=== PATIENT | female | born 1995 | race American Indian/Alaskan Native ===

== ENCOUNTER 2017-10-26 12:37 | Emergency (ER) | payer MEDICAID ==
[2017-10-26] MEDS ORDERED: TYLENOL PO ONE (13:45)
[2017-10-26] MEDS ORDERED: PROVENTIL IH ONE (13:45)
[2017-10-26] MEDS ORDERED: NACL 0.9% 500 ML 500 ML IV ONE (13:45)
--- NOTE | 2017-10-26 13:46 | Emergency Department Report ---
ED General Adult HPI - General Chief complaint: Back Pain/Injury Stated complaint: RIGHT FLANK PAIN Time Seen by Provider: 10/26/17 13:26 Source: patient, RN notes reviewed Mode of arrival: Ambulatory Limitations: No Limitations - History of Present Illness Initial comments: This is a 22-year-old female who is previously unknown to this provider, does not have any chronic medical conditions, and reports that she is not . Patient presents to the ER with complaint of right upper quadrant pain and cough intermittently for 2 weeks. The pain is achy, and increases with coughing. It decreases with rest. There is no chest pain, no shortness of breath, no mucus production, has no leg pain, no leg swelling, but does have an indwelling left upper extremity implanan device. Patient denies lower abdominal pain, irritative, obstructive urinary symptoms. -: Gradual Location: abdomen Radiation: back Quality: aching Consistency: intermittent Improves with: rest Worsens with: movement Associated Symptoms: cough. denies: confusion, chest pain, diaphoresis, fever/ chills, headaches, loss of appetite, malaise, nausea/vomiting, rash, seizure, shortness of breath, syncope, weakness - Related Data Home Medications Medication Instructions Recorded Confirmed Last Taken Ferrous Sulfate 1 tab PO BID 02/01/14 02/01/14 01/31/14 22:00 Previous Rx's Medication Instructions Recorded Last Taken Type Acetaminophen [Tylenol Arthritis] 650 mg PO Q6HR PRN #30 tablet.er 10/26/17 Unknown Rx Albuterol Sulfate [Proair 90 mcg IH Q4HR PRN #2 aer.pow.ba 10/26/17 Unknown Rx Respiclick] Azithromycin [Zithromax TAB] 250 mg PO QDAY #4 tablet 10/26/17 Unknown Rx Benzonatate [Tessalon Perles] 100 mg PO Q8HR PRN #30 capsule 10/26/17 Unknown Rx Ibuprofen [Motrin] 600 mg PO Q8H PRN #30 tablet 10/26/17 Unknown Rx Ondansetron [Zofran Odt] 4 mg PO Q8HR PRN #20 tab.rapdis 10/26/17 Unknown Rx Allergies Allergy/AdvReac Type Severity Reaction Status Date / Time No Known Allergies Allergy Verified 02/01/14 04:26 ED Review of Systems ROS: Stated complaint: RIGHT FLANK PAIN Other details as noted in HPI Comment: All other systems reviewed and negative ED Past Medical Hx - Past Medical History Hx Hypertension: No Hx Congestive Heart Failure: No Hx Diabetes: No Hx Deep Vein Thrombosis: No Hx Renal Disease: No Hx Sickle Cell Disease: No Hx Seizures: No Hx Asthma: No Hx COPD: No - Surgical History Past Surgical History?: No - Social History Smoking Status: Never Smoker Substance Use Type: Marijuana - Medications Home Medications: Home Medications Medication Instructions Recorded Confirmed Last Taken Type Ferrous Sulfate 1 tab PO BID 02/01/14 02/01/14 01/31/14 22:00 History Acetaminophen [Tylenol Arthritis] 650 mg PO Q6HR PRN #30 tablet.er 10/26/17 Unknown Rx Albuterol Sulfate [Proair 90 mcg IH Q4HR PRN #2 aer.pow.ba 10/26/17 Unknown Rx Respiclick] Azithromycin [Zithromax TAB] 250 mg PO QDAY #4 tablet 10/26/17 Unknown Rx Benzonatate [Tessalon Perles] 100 mg PO Q8HR PRN #30 capsule 10/26/17 Unknown Rx Ibuprofen [Motrin] 600 mg PO Q8H PRN #30 tablet 10/26/17 Unknown Rx Ondansetron [Zofran Odt] 4 mg PO Q8HR PRN #20 tab.rapdis 10/26/17 Unknown Rx ED Physical Exam - General Limitations: No Limitations General appearance: alert, in no apparent distress - Head Head exam: Present: atraumatic, normocephalic - Eye Eye exam: Present: normal appearance, EOMI. Absent: nystagmus - ENT ENT exam: Present: normal exam, normal orophraynx, mucous membranes moist, normal external ear exam - Neck Neck exam: Present: normal inspection, full ROM - Respiratory Respiratory exam: Present: normal lung sounds bilaterally. Absent: respiratory distress - Cardiovascular Cardiovascular Exam: Present: normal rhythm, tachycardia, normal heart sounds. Absent: systolic murmur, diastolic murmur, rubs, gallop - GI/Abdominal GI/Abdominal exam: Present: soft, tenderness, normal bowel sounds, other (there is right upper quadrant tenderness. Negative Francois sign.). Absent: distended , guarding, rebound, rigid, bruit, pulsatile mass - Extremities Exam Extremities exam: Present: normal inspection, full ROM, normal capillary refill. Absent: pedal edema, joint swelling, calf tenderness - Back Exam Back exam: Present: normal inspection, full ROM. Absent: tenderness, CVA tenderness (R), paraspinal tenderness, vertebral tenderness - Neurological Exam Neurological exam: Present: alert, oriented X3, CN II-XII intact, normal gait, other (Extraocular movements intact. Tongue midline. No facial droop. Facial sensation intact to light touch in the V1, V2, V3 distribution bilaterally. 5 and 5 strength in 4 extremities.. Sensation is intact to light touch in 4 extremities.). Absent: motor sensory deficit - Psychiatric Psychiatric exam: Present: normal affect, normal mood - Skin Skin exam: Present: warm, dry, intact, normal color. Absent: rash ED Course Vital Signs 10/26/17 10/26/17 10/26/17 12:51 14:52 15:10 Temperature 98.3 F Pulse Rate 119 H Pulse Rate [ 98 H Anterior Bilateral Throughout] Respiratory 16 18 Rate Respiratory 16 Rate [Anterior Bilateral Throughout] Blood Pressure 140/94 Blood Pressure [Left] O2 Sat by Pulse 100 Oximetry 10/26/17 10/26/17 10/26/17 15:12 15:33 17:50 Temperature Pulse Rate 125 H 103 H Pulse Rate [ 98 H Anterior Bilateral Throughout] Respiratory 20 18 Rate Respiratory 18 Rate [Anterior Bilateral Throughout] Blood Pressure 144/86 Blood Pressure 129/79 [Left] O2 Sat by Pulse 100 100 Oximetry - Reevaluation(s) Reevaluation #1: 10/26/17 17:05 Patient continues to walk around the department in no distress. She is tolerating liquid feeds, playing on a cell phone and looks much improved. Tachycardia appreciated, but based on all the data available, I believe the patient is medically suitable for discharge at this time, and she is reliable to follow up as an outpatient. Reevaluation #2: 10/26/17 21:32 Heart rate 103 bpm at the time of discharge ED Medical Decision Making - Lab Data Result diagrams: 10/26/17 13:49 10/26/17 13:49 Vital Signs 10/26/17 10/26/17 10/26/17 12:51 14:52 15:10 Temperature 98.3 F Pulse Rate 119 H Pulse Rate [ 98 H Anterior Bilateral Throughout] Respiratory 16 18 Rate Respiratory 16 Rate [Anterior Bilateral Throughout] Blood Pressure 140/94 O2 Sat by Pulse 100 Oximetry 10/26/17 10/26/17 15:12 15:33 Temperature Pulse Rate 125 H Pulse Rate [ 98 H Anterior Bilateral Throughout] Respiratory 20 Rate Respiratory 18 Rate [Anterior Bilateral Throughout] Blood Pressure 144/86 O2 Sat by Pulse 100 Oximetry Laboratory Last Values WBC 19.2 K/mm3 (4.5-11.0) H 10/26/17 13:49 RBC 5.62 M/mm3 (3.65-5.03) H 10/26/17 13:49 Hgb 11.8 gm/dl (10.1-14.3) 10/26/17 13:49 Hct 38.2 % (30.3-42.9) 10/26/17 13:49 MCV 68 fl (79-97) L 10/26/17 13:49 MCH 21 pg (28-32) L 10/26/17 13:49 MCHC 31 % (30-34) 10/26/17 13:49 RDW 16.0 % (13.2-15.2) H 10/26/17 13:49 Plt Count 313 K/mm3 (140-440) 10/26/17 13:49 PT 12.4 Sec. (12.2-14.9) 10/26/17 13:49 INR 0.88 (0.87-1.13) 10/26/17 13:49 D-Dimer 1448.49 ng/mlDDU (0-234) H 10/26/17 13:49 Sodium 138 mmol/L (137-145) 10/26/17 13:49 Potassium 4.6 mmol/L (3.6-5.0) 10/26/17 13:49 Chloride 98.7 mmol/L (98-107) 10/26/17 13:49 Carbon Dioxide 25 mmol/L (22-30) 10/26/17 13:49 Anion Gap 19 mmol/L 10/26/17 13:49 BUN 8 mg/dL (7-17) 10/26/17 13:49 Creatinine 0.6 mg/dL (0.7-1.2) L 10/26/17 13:49 Estimated GFR > 60 ml/min 10/26/17 13:49 BUN/Creatinine Ratio 13 % 10/26/17 13:49 Glucose 75 mg/dL (65-100) 10/26/17 13:49 Calcium 9.0 mg/dL (8.4-10.2) 10/26/17 13:49 Total Bilirubin 0.40 mg/dL (0.1-1.2) 10/26/17 13:49 AST 24 units/L (5-40) 10/26/17 13:49 ALT 14 units/L (7-56) 10/26/17 13:49 Alkaline Phosphatase 83 units/L (35-129) 10/26/17 13:49 Total Protein 8.0 g/dL (6.3-8.2) 10/26/17 13:49 Albumin 4.1 g/dL (3.9-5) 10/26/17 13:49 Albumin/Globulin Ratio 1.1 % 10/26/17 13:49 Lipase 19 units/L (13-60) 10/26/17 13:49 Urine Color Yellow (Yellow) 10/26/17 14:34 Urine Turbidity Clear (Clear) 10/26/17 14:34 Urine pH 5.0 (5.0-7.0) 10/26/17 14:34 Ur Specific [place] 1.021 (1.003-1.030) 10/26/17 14:34 Urine Protein 30 mg/dl mg/dL (Negative) 10/26/17 14:34 Urine Glucose (UA) Neg mg/dL (Negative) 10/26/17 14:34 Urine Ketones Neg mg/dL (Negative) 10/26/17 14:34 Urine Blood Sm (Negative) 10/26/17 14:34 Urine Nitrite Neg (Negative) 10/26/17 14:34 Ur Reducing Substances Not Reportable 10/26/17 14:34 Urine Bilirubin Neg (Negative) 10/26/17 14:34 Urine Ictotest Not Reportable 10/26/17 14:34 Urine Urobilinogen < 2.0 mg/dL (<2.0) 10/26/17 14:34 Ur Leukocyte Esterase Tr (Negative) 10/26/17 14:34 Urine WBC (Auto) 3.0 /HPF (0.0-6.0) 10/26/17 14:34 Urine RBC (Auto) 4.0 /HPF (0.0-6.0) 10/26/17 14:34 U Epithel Cells (Auto) 14.0 /HPF (0-13.0) H 10/26/17 14:34 Amorphous Crystals 1+ 10/26/17 14:34 Urine Mucus Few /HPF 10/26/17 14:34 Urine HCG, Qual Negative (Negative) 10/26/17 14:34 - Radiology Data Radiology results: report reviewed, image reviewed Right upper quadrant ultrasound: Negative for acute disease, not consistent with cholecystitis CT scan of the chest: Negative for pulmonary embolus, large right lower lobe pneumonia, no evidence of abscess - Medical Decision Making Differential diagnosis, including not limited to: Cholecystitis, pneumonia, pulmonary embolus, rhonchi S Assessment and plan: 22-year-old female with right upper quadrant pain, cough, tachycardia. Has indwelling control device, low risk by well's criteria, tachycardic, d- dimer sent and found to be elevated. Laboratory quadrant ultrasound negative for cholecystitis. Laboratory studies unremarkable with exception of leukocytosis. CT scan of the chest demonstrates uncomplicated right lower lobe pneumonia. I appreciates that the patient is tachycardic and has a leukocytosis, however she is afebrile, saturating well, not in any respiratory distress, playing on a telephone, tolerating liquid feeds, and is hemodynamically stable. She is immune competent as far she knows, and is therefore suitable for a trial of oral outpatient antibiotics. I appreciate that the patient does meet systemic inflammatory response syndrome criteria, but given the aforementioned, I believe the patient suitable for a trial of oral outpatient antibiotics. She will be given fluids, she is also somewhat tachycardic after being given albuterol, and will be discharged home with Tessalon Perles, albuterol, and azithromycin. Critical care attestation.: If time is entered above; I have spent that time in minutes in the direct care of this critically ill patient, excluding procedure time. ED Disposition Clinical Impression: Pneumonia Qualifiers: Pneumonia type: due to unspecified organism Laterality: right Lung location: lower lobe of lung Qualified Code(s): J18.1 - Lobar pneumonia, unspecified organism Disposition: - TO HOME OR SELFCARE Is pt being admited?: No Does the pt Need Aspirin: No Condition: Stable Instructions: Bacterial Pneumonia (ED) Additional Instructions: Take the medications as needed/directed. If taking ibuprofen for pain, take it with food. Follow up in 2-3 days for a repeat checkup/evaluation. Patient may follow-up either at an urgent care center, with a primary care doctor, or may return to this emergency room for a recheck. Please return to the ER right away with lethargy, irritability, projectile vomiting, change in mental status, confusion, inability to tolerate liquid feeds. Prescriptions: Acetaminophen [Tylenol Arthritis] 650 mg PO Q6HR PRN #30 tablet.er PRN Reason: Pain Albuterol Sulfate [Proair Respiclick] 90 mcg IH Q4HR PRN #2 aer.pow.ba PRN Reason: Wheezing Azithromycin [Zithromax TAB] 250 mg PO QDAY #4 tablet Benzonatate [Tessalon Perles] 100 mg PO Q8HR PRN #30 capsule PRN Reason: Cough Ibuprofen [Motrin] 600 mg PO Q8H PRN #30 tablet PRN Reason: Pain Ondansetron [Zofran Odt] 4 mg PO Q8HR PRN #20 tab.rapdis PRN Reason: Nausea Referrals: PRIMARY CAREMD [Primary Care Provider] - 3-5 Days DEMAR MARIN MD [Staff Physician] - 3-5 Days Forms: Work/School Release Form(ED)
[2017-10-26 14:20] LABS: Hematocrit 38.2 % (30.3-42.9); Hemoglobin 11.8 gm/dl (10.1-14.3); Mean Corpuscular HGB Conc 31 % (30-34); Red Blood Count 5.62 M/mm3 (3.65-5.03)
[2017-10-26 14:29] LABS: INR 0.88 (0.87-1.13)
[2017-10-26 14:30] LABS: Albumin 4.1 g/dL (3.9-5); BUN/Creatinine Ratio 13; Blood Urea Nitrogen 8 mg/dL (7-17); Hemolysis Index 144; Lipase 19 units/L (13-60)
[2017-10-26 14:31] LABS: Mean Corpuscular Volume 68 fl (79-97)
[2017-10-26 14:32] LABS: Mean Corpuscular Hemoglobin 21 pg (28-32); Platelet Count 313 K/mm3 (140-440)
[2017-10-26 14:52] LABS: HCG Qualitative,Urine Negative (Negative)
[2017-10-26 14:54] LABS: Amorphous Crystals,Urine 1+; Bilirubin,Urine NEG (Negative); Blood,Urine SM (Negative); Color,Urine Yellow (Yellow); Mucus,Urine FEW /HPF; Urobilinogen,Urine < 2.0 mg/dL (<2.0)
[2017-10-26 15:04] LABS: Alanine Aminotransferase 14 units/L (7-56)
--- NOTE | 2017-10-26 15:26 | Ultrasound Report ---
FINAL REPORT PROCEDURE: US ABDOMEN LIMITED TECHNIQUE: Real-time sonography in multiple planes of the gallbladder fossa and CBD with imaging of the adjacent liver, pancreas, and right kidney was performed with image documentation. CPT 67438 HISTORY: ruq pain COMPARISON: No prior studies are available for comparison. FINDINGS: Liver: Normal size and echotexture with no evidence of cystic or solid mass lesion. Gallbladder: Fluid filled. No gallstones, wall thickening, pericholecystic fluid, or sonographic Francois's sign . Intrahepatic bile ducts: Normal . Extrahepatic bile ducts: Common bile duct measures 3 millimeters in caliber. Pancreas: Not well-visualized. Right kidney: Normal echotexture. No focal renal mass, calculus, or hydronephrosis. Other: No free fluid. IMPRESSION: No sonographic evidence of cholelithiasis or cholecystitis
[2017-10-26] MEDS ORDERED: TORADOL IV ONE (15:40)
[2017-10-26] MEDS ORDERED: NACL 0.9% 1000 ML IV ONE (16:01)
[2017-10-26] MEDS ORDERED: ZITHROMAX PO ONE (16:01)
[2017-10-26] MEDS ORDERED: ROCEPHIN/NS 1 GM/50 ML 1 GM/50 ML BAG IV ONE (16:01)
[2017-10-26] MEDS ORDERED: cefTRIAXone 1 GM in NACL 0.9% 20 ML IV ONE (16:15)
--- NOTE | 2017-10-26 16:17 | Cat Scan Report ---
FINAL REPORT PROCEDURE: CT ANGIO CHEST TECHNIQUE: Computerized tomographic angiography of the chest was performed after the IV injection of iodinated nonionic contrast including image processing. The image data was postprocessed using 2-dimensional multiplanar reformatted (MPR) and 3-dimensional (MIP and/or volume rendered) techniques. HISTORY: Right upper quadrant pain COMPARISON: No prior studies are available for comparison. FINDINGS: Heart and pericardium: No pericardial effusion or thickening. Thoracic aorta: No aneurysm or dissection. Pulmonary vasculature: Mildly limited evaluation due to streak artifact. No convincing filling defects/pulmonary emboli are identified. Lymph nodes: Right hilar nodes measure up to 7 millimeters in short axis. Lungs: There are extensive airspace infiltrates in the right lower lobe, compatible with pneumonia. Pleural space: No effusion, thickening, or pneumothorax. Musculoskeletal structures: No significant abnormality. Upper abdominal structures: No significant abnormality. IMPRESSION: Findings are compatible with extensive right lower lobe pneumonia. No evidence of pulmonary emboli
[2017-10-26 17:50] VITALS: BP 129/79
== END 2017-10-26 18:12 | disposition home or self-care (01) ==
LOC: ED 12:37
DX: J18.9 Pneumonia, unspecified organism (principal)
CPT/HCPCS: 36415; 71275; 76705; 80053; 81001; 81025; 83690; 85027; 85379; 85610; 94640; 96374; 96375; 99284; J0696; J1885; J7030; J7040; Q9967